=== PATIENT | female | born 1990 | race Caucasian/White ===

== ENCOUNTER 2018-04-16 13:41 | Emergency (ER) | payer OTHER ==
[~2018-04-16] VITALS: Ht 154.9 cm; Wt 72.6 kg
[2018-04-16] MEDS ORDERED: PRENATAL 19 CH1 EAC1 PO (13:55)
[2018-04-16] MEDS ORDERED: AUGMENTIN 875-1 EACH PO (14:12)
[2018-04-16 14:45] VITALS: BP 110/73
== END 2018-04-16 14:47 | disposition home or self-care (01) ==
LOC: M.ERS 13:41
DX: O9A.212 Injury, poisoning and certain other consequences of external causes complicating pregnancy, second trimester (principal); S61.551A Open bite of right wrist, initial encounter; W54.0XXA Bitten by dog, initial encounter; Y93.89 Activity, other specified; Y92.89 Other specified places as the place of occurrence of the external cause; Y99.8 Other external cause status; Z3A.20 20 weeks gestation of pregnancy